=== PATIENT | male | born 1980 | race Caucasian/White ===

== ENCOUNTER 2017-01-21 06:50 | Emergency (ER) | payer MEDICAID ==
[~2017-01-21 06:50] MED LIST: ONDANSETRON DISINTEGRATING 4 MG TAB PO SCH
[2017-01-21 06:57] VITALS: RESP 18
[2017-01-21] MEDS ORDERED: NS 1,000 ML IV ONE ×2 (07:16→07:18)
[2017-01-21] MEDS ORDERED: ONDANSETRON 4 MG/2 ML VIAL IVP ONE (07:16)
--- NOTE | 2017-01-21 07:17 | EDPHY ---
H & P Time Seen by Provider: 01/21/17 07:06 HPI/ROS: CHIEF COMPLAINT: Nausea and vomiting HISTORY OF PRESENT ILLNESS: The patient is a 36-year-old male the history of hernia who presents to the emergency department with nausea, vomiting diarrhea. Patient states that he laid down to sleep at 5:00 p.m.. He awoke at 7:00 p.m. this nausea and vomiting. He has been vomiting all night. This is accompanied by diarrhea. His vomiting and diarrhea nonbloody. He describes abdominal cramping that is diffuse. He has no fevers or chills. No dysuria Myles. No chest pain. No sick contacts at home. He ate chips prior to going to bed but no other food. REVIEW OF SYSTEMS: My complete review of systems is negative except as mentioned in the HPI. Past Medical/Surgical History: Includes hernia, arthritis. The triage note states that he has a history of alcohol or drug use. Past Surgical: Hernia Social history: The patient smokes. He reports using THC. No other drug use. Denies drinking alcohol. Smoking Status: Current every day smoker Physical Exam: 36.4, 125/92, 18, 95% on room air GENERAL: Well-appearing, in no acute distress, alert. HEENT: Eyes normal to inspection, dry mucous membranes. NECK: No thyromegaly, no lymphadenopathy, supple. RESPIRATORY: Clear to auscultation bilaterally, no rales, rhonchi or wheezing. CVS: Regular rate and rhythm, no rubs, murmurs, or gallops. ABDOMEN: Soft, nontender, nondistended, no organomegaly. Benign BACK: Normal to inspection, no CVA tenderness. SKIN: Normal color, no rash, warm, dry. No pallor. EXTREMITIES: No pedal edema, no calf tenderness, no Homans sign or cords, no joint swelling. NEURO/PSYCH: Alert and oriented x3, normal mood and affect, normal motor sensory exam. Constitutional: Initial Vital Signs Temperature (C) 36.4 C 01/21/17 06:53 Heart Rate 88 01/21/17 06:53 Respiratory Rate 18 01/21/17 06:53 Blood Pressure 125/92 H 01/21/17 06:53 O2 Sat (%) 95 01/21/17 06:53 O2 Delivery Mode Room Air Allergies/Adverse Reactions: methocarbamol [From Robaxin] Allergy (Severe, Verified 01/14/17 09:49) "coma" Home Medications: Medication Instructions Recorded Asenapine Maleate [Saphris] 5 mg SL 01/14/17 Ondansetron Odt [Zofran Odt 4 mg 4 mg PO Q4PRN PRN #7 tab 01/21/17 (*)] Medical Decision Making - Diagnostics Imaging Results: Imaging Impressions Abdomen CT 01/21/17 09:07 Impression: 1. Probably benign subcentimeter hepatic cyst. 2. No CT evidence of appendicitis, abscess or bowel obstruction. Findings and recommendations discussed with Emergency Department physician, Dr. Carlie Callahan at 1000 hours on January 21, 2017. Final report concurs with initial preliminary interpretation. ED Course/Re-evaluation: In the emergency department I discussed all etiologies with the patient. I answered all his questions. IV was placed. Patient was given normal saline 1 L IV for hydration is given Zofran 4 mg IV for nausea. Labs were obtained. The patient's white count is elevated at 12. Hematocrit elevated at 51. Patient 's chemistry panel shows normal sodium and potassium. The CO2 is slightly low at 20. Anion gap is elevated at 19. Patient's creatinine is normal. BUN is elevated at 27. I rechecked the patient. He continued to have mild nausea. He was given additional L of normal saline. 800: Pt is sleeping when I entered. No new complaints. No n/v while here. 900: On recheck the patient had mild left lower quadrant abdominal pain. No rebound or guarding to because of this CT scan was ordered. I discussed this with the patient. CT of the abdomen pelvis: Please refer the dictated report. No acute disease noted. 10 15: The patient is resting comfortably. He has no abdominal tenderness to palpation on his repeat exam. Patient was given warnings prior to leaving. He will return with worsening symptoms. Differential Diagnosis: My differential includes but is not limited to obstruction, pancreatitis, cholecystitis, cholangitis, electrolyte abnormality, sugar abnormality, dehydration, viral illness, food poisoning - Data Points Laboratory Results: Laboratory Results 01/21/17 07:10 01/21/17 07:10 01/21/17 01/21/17 01/21/17 10:00 07:10 07:10 WBC 12.31 10^3/uL H 10^3/uL (3.80-9.50) RBC 5.93 10^6/uL 10^6/uL (4.40-6.38) Hgb 18.0 g/dL H g/dL (13.7-17.5) Hct 51.8 % H % (40.0-51.0) MCV 87.4 fL fL (81.5-99.8) MCH 30.4 pg pg (27.9-34.1) MCHC 34.7 g/dL g/dL (32.4-36.7) RDW 13.1 % % (11.5-15.2) Plt Count 291 10^3/uL 10^3/uL (150-400) MPV 9.8 fL fL (8.7-11.7) Neut % (Auto) 90.0 % H % (39.3-74.2) Lymph % (Auto) 2.9 % L % (15.0-45.0) Early % (Auto) 6.0 % % (4.5-13.0) Eos % (Auto) 0.5 % L % (0.6-7.6) Baso % (Auto) 0.3 % % (0.3-1.7) Nucleat RBC Rel Count 0.0 % % (0.0-0.2) Absolute Neuts (auto) 11.07 10^3/uL H 10^3/uL (1.70-6.50) Absolute Lymphs (auto) 0.36 10^3/uL L 10^3/uL (1.00-3.00) Absolute Monos (auto) 0.74 10^3/uL 10^3/uL (0.30-0.80) Absolute Eos (auto) 0.06 10^3/uL 10^3/uL (0.03-0.40) Absolute Basos (auto) 0.04 10^3/uL 10^3/uL (0.02-0.10) Absolute Nucleated RBC 0.00 10^3/uL 10^3/uL (0-0.01) Immature Gran % 0.3 % % (0.0-1.1) Immature Gran # 0.04 10^3/uL 10^3/uL (0.00-0.10) Sodium 144 mEq/L mEq/L (134-144) Potassium 4.6 mEq/L mEq/L (3.5-5.2) Chloride 105 mEq/L mEq/L (97-110) Carbon Dioxide 20 mEq/l L mEq/l (22-31) Anion Gap 19 mEq/L H mEq/L (8-16) BUN 27 mg/dL H mg/dL (7-23) Creatinine 1.0 mg/dL mg/dL (0.7-1.3) Estimated GFR > 60 Glucose 126 mg/dL H mg/dL (70-100) Calcium 10.2 mg/dL mg/dL (8.5-10.4) Total Bilirubin 1.2 mg/dL mg/dL (0.1-1.4) Conjugated Bilirubin 0.3 mg/dL mg/dL (0.0-0.5) Unconjugated Bilirubin 0.9 mg/dL mg/dL (0.0-1.1) AST 31 IU/L IU/L (17-59) ALT 36 IU/L IU/L (21-72) Alkaline Phosphatase 79 IU/L IU/L (38-126) Total Protein 8.1 g/dL g/dL (6.3-8.2) Albumin 4.8 g/dL g/dL (3.5-5.0) Lipase 29 IU/L IU/L (23-300) Urine Color YELLOW Urine Appearance CLEAR Urine pH 5.0 (5.0-7.5) Ur Specific Sedan > 1.035 H (1.002-1.030) Urine Protein NEGATIVE (NEGATIVE) Urine Ketones 2+ H (NEGATIVE) Urine Blood NEGATIVE (NEGATIVE) Urine Nitrate NEGATIVE (NEGATIVE) Urine Bilirubin NEGATIVE (NEGATIVE) Urine Urobilinogen NEGATIVE EU EU (0.2-1.0) Ur Leukocyte Esterase NEGATIVE (NEGATIVE) Urine Glucose NEGATIVE (NEGATIVE) Medications Given: Discontinued Medications Sodium Chloride (Ns) 1,000 mls @ 0 mls/hr IV ONCE ONE PRN Reason: Wide Open Stop: 01/21/17 07:17 Last Admin: 01/21/17 07:21 Dose: 1,000 mls Sodium Chloride (Ns) 1,000 mls @ 0 mls/hr IV EDNOW ONE; Wide Open PRN Reason: Protocol Stop: 01/21/17 07:19 Last Admin: 01/21/17 08:11 Dose: 1,000 mls Famotidine/Sodium Chloride (Pepcid 20 Mg (Premix)) 50 mls @ 200 mls/hr IV EDNOW ONE Stop: 01/21/17 07:32 Last Admin: 01/21/17 07:23 Dose: 50 mls Ondansetron HCl (Zofran) 4 mg IVP EDNOW ONE Stop: 01/21/17 07:17 Last Admin: 01/21/17 07:21 Dose: 4 mg Departure - Departure Disposition: Home, Routine, Self-Care Clinical Impression: Diarrhea Qualifiers: Diarrhea type: unspecified type Qualified Code(s): R19.7 - Diarrhea, unspecified Vomiting Qualifiers: Vomiting type: unspecified Vomiting Intractability: non-intractable Nausea presence: with nausea Qualified Code(s): R11.2 - Nausea with vomiting, unspecified Condition: Good Instructions: Acute Nausea and Vomiting (ED), Acute Diarrhea (ED) Additional Instructions: Return with increasing pain, repeated vomiting, inability to tolerate liquids, or any other concerns. Referrals: Bernadette Bermudez [Primary Care Provider] - 2-3 days, call for appt. Prescriptions: Ondansetron Odt [Zofran Odt 4 mg (*)] 4 mg PO Q4PRN PRN #7 tab PRN Reason: For Nausea & Vomiting
[2017-01-21] MEDS ORDERED: FAMOTIDINE 20 MG/NACL 50 ML IV ONE (07:18)
[2017-01-21 07:29] LABS: % IMMATURE GRANULYOCYTES 0.3 % (0.0-1.1); ABSOLUTE IMMATURE GRANULOCYTES 0.04 10^3/uL (0.00-0.10); ADD DIFF? NO; ADD MORPH? NO; ADD SCAN? NO; ATYPICAL LYMPHOCYTE FLAG 0 (0-99); FRAGMENT RBC FLAG 0 (0-99); HEMATOCRIT 51.8 % (40.0-51.0); LEFT SHIFT FLG 0 (0-99); LIPEMIA HEMOLYSIS FLAG 90 (0-99); MEAN CELL HEMOGLOBIN 30.4 pg (27.9-34.1); MEAN CELL HEMOGLOBIN CONCENTR. 34.7 g/dL (32.4-36.7); MEAN CELL VOLUME 87.4 fL (81.5-99.8); MEAN PLATELET VOLUME 9.8 fL (8.7-11.7); PLATELET CLUMPS FLAG 0 (0-99); PLATELET COUNT 291 10^3/uL (150-400); RED BLOOD CELL COUNT 5.93 10^6/uL (4.40-6.38); RED CELL DISTRIBUTION WIDTH 13.1 % (11.5-15.2)
[2017-01-21 07:37] LABS: ALANINE AMINOTRANSFERASE 36 IU/L (21-72); ALBUMIN 4.8 g/dL (3.5-5.0); ALKALINE PHOSPHATASE 79 IU/L (38-126); ANION GAP 19 mEq/L (8-16); ASPARTATE AMINOTRANSFERASE 31 IU/L (17-59); BILIRUBIN,TOTAL 1.2 mg/dL (0.1-1.4); BILIRUBIN-CONJUGATED 0.3 mg/dL (0.0-0.5); BILIRUBIN-UNCONJUGATED 0.9 mg/dL (0.0-1.1); CALCIUM 10.2 mg/dL (8.5-10.4); CARBON DIOXIDE 20 mEq/l (22-31); CHLORIDE 105 mEq/L (97-110); GLOMERULAR FILTRATION RATE > 60; GLUCOSE 126 mg/dL (70-100); POTASSIUM 4.6 mEq/L (3.5-5.2); SODIUM 144 mEq/L (134-144); TOTAL PROTEIN 8.1 g/dL (6.3-8.2)
[2017-01-21] MEDS ORDERED: IOPAMIDOL (ISOVUE-300) 100 ML BTL ONE (09:34)
[2017-01-21 10:09] LABS: COLOR YELLOW; LEUKOCYTE ESTERASE,URINE NEGATIVE (NEGATIVE); NITRITE,URINE NEGATIVE (NEGATIVE)
[2017-01-21 11:08] VITALS: BP 121/77; PULSE 78; TEMP 98.6; O2SAT 93
--- NOTE | 2017-01-21 12:03 | ASMTCMCOM ---
CM Note CM Note Notes: Patient seen in the ER this morning and discharged with prescription for Zofran. He presents back to triage requesting to have his prescription for Zofran filled. I have provided medication to pt. per the MAP program and discussed follow up with him Patient is an established patient with Dr. Bernadette Bermudez at [facility]. He is current with [place] [employer]. Patient has an existing appointment scheduled at [facility] for 944 on January 29. Patient tells me that he does not have the $2 copay to fill his prescription as he "has not been paid from work yet". Patient reminded to follow up with Dr. Bermudez for any refills or further prescription needs. Patient verbalizes understanding that although we were able to fill his prescription as a courtesy today, he will need to plan to be responsible for future needs and follow up with his PCP. Date Signed: 01/21/2017 12:03 PM Electronically Signed By:Steph Carlson RN
== END 2017-01-21 11:05 | disposition home or self-care (01) ==
LOC: MERGE 06:50
PROC: 3E0337Z Introduction of Electrolytic and Water Balance Substance into Peripheral Vein, Percutaneous Approach (ICD-10-PCS; principal; 2017-01-21)
DX: R11.2 Nausea with vomiting, unspecified (principal); R19.7 Diarrhea, unspecified; E86.9 Volume depletion, unspecified; F17.200 Nicotine dependence, unspecified, uncomplicated
CPT/HCPCS: 96374; J2405; Q9967

== ENCOUNTER 2017-02-08 20:30 | Emergency (ER) | payer MEDICAID ==
[2017-02-08 20:45] LABS: PLATELET COUNT 315 10^3/uL (150-400)
--- NOTE | 2017-02-08 21:25 | EDPHY ---
H & P Stated Complaint: SI, ?meth withdrawal Source: Patient, RN notes reviewed, Old records - Personal History Current Tetanus/Diphtheria Vaccine: Yes - Medical/Surgical History Hx Asthma: Yes Hx Chronic Respiratory Disease: No Hx Diabetes: No Hx Cardiac Disease: No Hx Renal Disease: No Hx Cirrhosis: No Hx Alcoholism: No Hx HIV/AIDS: No Hx Splenectomy or Spleen Trauma: No Other PMH: HERNIA, ARTHRITIS, PIN NECK, ETOH/DRUG USE. bipolar, PTSD, SI, personality disorder, depression - Social History Smoking Status: Current every day smoker HPI/ROS: HPI: This is a 36-year-old male presents with Chief Complaint: Suicidal ideation Location:psych Quality: Suicidal ideation Duration: Today Signs and Symptoms: no auditory and visual command hallucinations, + suicidal ideation with a plan, no homicidal ideation, no paranoia Timing: Acute on chronic Severity: Severe Context: Patient has a history of alcohol and drug abuse, posttraumatic stress disorder, personality disorder and depression presents with complaints of wanting to cut his wrists and and end his life. He reports inhalation of methamphetamine at 6:00 a.m. this morning but through his pipe away afterwards. He has not been on any psychiatric medications for for over 1 month as the [facility] has his backpack which contains his medication no other personal items. He reports he has no place safe to go. Modifying Factors: None Comment: ROS: see HPI Constitutional: No fever, no chills, no weight loss Eyes: No blurred vision Respiratory: No shortness of breath, no cough Cardiovascular: No chest pain Gastrointestinal: No nausea, no vomiting, no diarrhea Genitourinary: No dysuria Extremities: No myalgias Neurologic: No weakness, no numbness Skin: No rashes Hematologic: No bruising, no bleeding MEDICAL/SURGICAL/SOCIAL HISTORY: Medical/Surgical history: HERNIA, ARTHRITIS, PIN NECK, ETOH/DRUG USE, bipolar, PTSD, SI, personality disorder, depression Social history: Homeless CONSTITUTIONAL: Untidy, adult white male, awake and alert, no obvious distress HEENT: Atraumatic and normocephalic, PERRL, EOMI. Tympanic membranes clear. Oropharynx clear, no exudate and moist pink mucosa. Airway patent. No lymphadenopathy. No meningismus. Cardiovascular: Normal S1/S2, regular rate, regular rhythm, without murmur rub or gallop. PULMONARY/CHEST: Symmetrical and nontender. Clear to auscultation bilaterally. Good air movement. No accessory muscle usage. Dry cough noted. ABDOMEN: Soft, nondistended, nontender, no rebound, no guarding, no peritoneal signs, no masses or organomegaly. No CVAT. EXTREMITIES: 2/2 pulses, strength 5/5, no deformities, no clubbing, no cyanosis or edema. NEUROLOGICAL: no focal neuro deficits. GCS 15. SKIN: Warm and dry, no erythema. no rash. Good capillary refill. PSYCH: Poor eye contact, + flight of ideas, somewhat organized thought process, poor insight and judgment, no auditory and visual command hallucinations, + suicidal ideation with a plan, no homicidal ideation, no paranoia (Hoda Castro) Constitutional: Initial Vital Signs Temperature (C) 36.6 C 02/08/17 20:41 Heart Rate 94 02/08/17 20:41 Respiratory Rate 18 02/08/17 20:41 Blood Pressure 141/92 H 02/08/17 20:41 O2 Sat (%) 98 02/08/17 20:41 O2 Delivery Mode Room Air Allergies/Adverse Reactions: methocarbamol [From Robaxin] Allergy (Severe, Verified 02/08/17 20:51) "coma" Home Medications: Medication Instructions Recorded Asenapine Maleate [Saphris] 5 mg SL 01/14/17 Medical Decision Making ED Course/Re-evaluation: The patient was evaluated and managed by the physician's human resources office assistant. My cosignature indicates that I reviewed the chart and I agree with the findings and plan of care as documented. I am the secondary supervising physician. ( Carlie Callahan) Placed on 1 M1 hold upon arrival due to patient being noncompliant with medications, suicidal ideation with a plan, gravely disabled and no place safe to go. Labs and UDS ordered. UDS is positive for marijuana and methamphetamines. 12 hr window; reassessment at 9:10 a.m. 2330: End of shift. Signed over to Dr. Oshea. Will need reassessment in the morning to determine polysubstance delirium versus true suicidal ideation. This patient was seen under the supervision of my secondary supervising physician. I evaluated care for this patient independently. Discussed this patient with Dr. Callahan who did not see the patient. (Hoda Castro) 0240AM: No acute events overnight. Patient has been sleeping. Patient is on M1 hold. Needs mental health evaluation. Positive for methamphetamine. Due to an evaluation at 9 o'clock this morning. Signed over to Dr. Law at 7am Shift-change. (Manpreet Oshea) Differential Diagnosis: Differential diagnosis includes but is not limited to polysubstance abuse, delirium, psychosis, functional in situational depression, suicidal ideation. (Hoda Castro) Other Provider: Care assumed at 700 from Jan with plan for psych evaluation for bipolar and suicidal thoughts. 1035: had psych evaluation, now looking for placement. 1500: signed out to Fani with psych placement pending. (Turner Law) Assumed care of this patient at 3:[address] Turner Law. Currently awaiting placement. The patient has been sleeping and resting comfortably throughout shift. We continue to await placement at midnight. Patient's care assumed by Dr. Manpreet Oshea. (Catrina Mohr) - Data Points Laboratory Results: Laboratory Results 02/08/17 20:30 02/08/17 20:39 Medications Given: Discontinued Medications Benzonatate (Tessalon Pearles) 200 mg PO EDNOW ONE Stop: 02/08/17 21:28 Last Admin: 02/08/17 21:52 Dose: 200 mg Ondansetron HCl (Zofran Odt) 4 mg PO EDNOW ONE Stop: 02/08/17 21:27 Last Admin: 02/08/17 21:52 Dose: 4 mg Departure - Departure Disposition: Home, Routine, Self-Care Clinical Impression: Methamphetamine use, Bipolar disorder Condition: Good Instructions: Bipolar Disorder (ED)
[2017-02-08] MEDS ORDERED: ONDANSETRON DISINTEGRATING 4 MG TAB PO ONE (21:26)
[2017-02-08] MEDS ORDERED: BENZONATATE 100 MG CAP PO ONE (21:27)
[2017-02-10] MEDS ORDERED: ONDANSETRON DISINTEGRATING 4 MG TAB PO ONE (10:33)
[2017-02-10] MEDS ORDERED: LORazepam 1 MG TAB PO ONE (10:37)
[2017-02-10] MEDS ORDERED: ASENAPINE MALEATE 10 MG SUBLINGUAL TAB SL ONE (18:09)
[2017-02-11] MEDS ORDERED: ASENAPINE MALEATE 10 MG SUBLINGUAL TAB SL SCH
[2017-02-11] MEDS: NICOTINE POLACRILEX 2 MG GUM B PRN ×2 (03:32→13:02)
[2017-02-11 09:06] VITALS: RESP 19
[2017-02-11 15:16] VITALS: BP 125/76; PULSE 69; TEMP 98.1; O2SAT 95
== END 2017-02-11 15:30 | disposition home or self-care (01) ==
LOC: EDUNIT#
DX: F15.90 Other stimulant use, unspecified, uncomplicated (principal); F31.9 Bipolar disorder, unspecified; J45.909 Unspecified asthma, uncomplicated; F17.200 Nicotine dependence, unspecified, uncomplicated
CPT/HCPCS: 80305; G0480

== ENCOUNTER 2017-02-12 18:10 | Emergency (ER) | payer MEDICAID ==
[2017-02-12 18:17] VITALS: BP 143/103; PULSE 102; RESP 20; TEMP 97.3; O2SAT 97
--- NOTE | 2017-02-12 18:55 | EDPHY ---
H & P Time Seen by Provider: 02/12/17 18:35 HPI/ROS: CHIEF COMPLAINT: I want to talk to the mental health HISTORY OF PRESENT ILLNESS: 36-year-old man has a history of drug use methamphetamine and bipolar disorder. He was here in the emergency department from February 08 until yesterday. He was discharge to detox that he got angry says he "exploded "and then went to the crisis Center and got his medications. He presents today saying that he is still trying to talk to the FBI, he thinks people are talking about him, he feels paranoid. " He tells me he was binge eating but when specifically asked he said he only had a subway sandwich, chips, twizzlers, and a burger and half. Patient denies suicidal or homicidal ideation. Denies any medical complaints. REVIEW OF SYSTEMS: Eye: no change in vision ENT: no sore throat Cardiac: no chest pain or syncope Pulmonary: no cough or SOB Abdomen: no vomiting, diarrhea, abdominal pain Musculoskeletal: no back pain Skin: no rash Neuro: no headache Constitutional: no fever : no urinary symptoms A comprehensive 10 point review of systems is otherwise negative aside from elements mentioned in the history of present illness. PAST MEDICAL HISTORY: Hernia, arthritis, alcohol and drug abuse, bipolar, PTSD. Social history: Patient denies any methamphetamine in the last 24 hr. Admits to marijuana use. General Appearance: Alert and conversant, cooperative. Eyes: No scleral icterus. ENT, Mouth: Normal mucous membranes. Respiratory: Normal respiratory effort, breath sounds equal, lungs are clear to auscultation. Cardiovascular: Regular rate and rhythm. Gastrointestinal: Abdomen is soft and non tender. Neurological: Alert, ambulatory, normal motor and sensory, face symmetric. Skin: Warm and dry, no rashes. 5 mm abrasion vertex of the scalp. Musculoskeletal: No peripheral edema. Psychiatric: Patient has rapid and rambling speech. Is not suicidal or homicidal. Emergency Department course/MDM: Plan for urine tox check for methamphetamine. Patient does not appear to meet criteria for emergent mental health hold. He is not suicidal homicidal or gravely disabled although he does appear a little bit paranoid. Mental health evaluation requested as per his request. Patient left prior to mental health evaluation. Smoking Status: Current every day smoker Constitutional: Initial Vital Signs Temperature (C) 36.3 C 02/12/17 18:13 Heart Rate 102 H 02/12/17 18:13 Respiratory Rate 20 02/12/17 18:13 Blood Pressure 143/103 H 02/12/17 18:13 O2 Sat (%) 97 02/12/17 18:13 O2 Delivery Mode Room Air Allergies/Adverse Reactions: methocarbamol [From Robaxin] Allergy (Severe, Verified 02/08/17 20:51) "coma" Home Medications: Medication Instructions Recorded Asenapine Maleate [Saphris] 5 mg SL 01/14/17 Asenapine Maleate [Saphris] 10 mg SL DAILY #3 tab 02/11/17 Medical Decision Making - Data Points Laboratory Results: Laboratory Results 02/12/17 19:32 02/12/17 19:32 02/12/17 02/12/17 02/12/17 19:32 19:32 18:53 WBC 9.76 10^3/uL H 10^3/uL (3.80-9.50) RBC 4.84 10^6/uL 10^6/uL (4.40-6.38) Hgb 15.0 g/dL g/dL (13.7-17.5) Hct 43.8 % % (40.0-51.0) MCV 90.5 fL fL (81.5-99.8) MCH 31.0 pg pg (27.9-34.1) MCHC 34.2 g/dL g/dL (32.4-36.7) RDW 12.8 % % (11.5-15.2) Plt Count 250 10^3/uL 10^3/uL (150-400) MPV 9.9 fL fL (8.7-11.7) Neut % (Auto) 70.8 % % (39.3-74.2) Lymph % (Auto) 18.9 % % (15.0-45.0) Hyde % (Auto) 8.1 % % (4.5-13.0) Eos % (Auto) 1.4 % % (0.6-7.6) Baso % (Auto) 0.6 % % (0.3-1.7) Nucleat RBC Rel Count 0.0 % % (0.0-0.2) Absolute Neuts (auto) 6.91 10^3/uL H 10^3/uL (1.70-6.50) Absolute Lymphs (auto) 1.84 10^3/uL 10^3/uL (1.00-3.00) Absolute Monos (auto) 0.79 10^3/uL 10^3/uL (0.30-0.80) Absolute Eos (auto) 0.14 10^3/uL 10^3/uL (0.03-0.40) Absolute Basos (auto) 0.06 10^3/uL 10^3/uL (0.02-0.10) Absolute Nucleated RBC 0.00 10^3/uL 10^3/uL (0-0.01) Immature Gran % 0.2 % % (0.0-1.1) Immature Gran # 0.02 10^3/uL 10^3/uL (0.00-0.10) Sodium 142 mEq/L mEq/L (134-144) Potassium 3.9 mEq/L mEq/L (3.5-5.2) Chloride 104 mEq/L mEq/L (97-110) Carbon Dioxide 22 mEq/l mEq/l (22-31) Anion Gap 16 mEq/L mEq/L (8-16) BUN 14 mg/dL mg/dL (7-23) Creatinine 0.8 mg/dL mg/dL (0.7-1.3) Estimated GFR > 60 Glucose 123 mg/dL H mg/dL (70-100) Calcium 9.6 mg/dL mg/dL (8.5-10.4) Urine Opiates Screen NEGATIVE (NEGATIVE) Urine Barbiturates NEGATIVE (NEGATIVE) Ur Phencyclidine Scrn NEGATIVE (NEGATIVE) Ur Amphetamine Screen NEGATIVE (NEGATIVE) U Benzodiazepines Scrn NEGATIVE (NEGATIVE) Urine Cocaine Screen NEGATIVE (NEGATIVE) U Marijuana (THC) Screen NON-NEGATIVE H (NEGATIVE) Ethyl Alcohol < 10 mg/dL mg/dL (0-10) Departure - Departure Disposition: Left Without Being Seen Clinical Impression: Bipolar disorder Qualifiers: Active/Remission status: currently active Condition: Good Referrals: Bernadette Bermudez [Primary Care Provider] - As per Instructions
[2017-02-12 19:39] LABS: PLATELET COUNT 250 10^3/uL (150-400)
== END 2017-02-12 20:55 | disposition left against medical advice (07) ==
DX: F31.9 Bipolar disorder, unspecified (principal); F17.200 Nicotine dependence, unspecified, uncomplicated
CPT/HCPCS: 80305; G0480